=== PATIENT | male | born 1980 | race Caucasian/White ===

== ENCOUNTER 2024-09-20 11:22 | Emergency (ER) | payer OTHER ==
[~2024-09-20] VITALS: Ht 188 cm; Wt 83.9 kg
[2024-09-20] MEDS ORDERED: Robaxin750 MG PO (15:04)
== END 2024-09-20 15:20 | disposition home or self-care (01) ==
LOC: ER 11:22
DX: M54.2 Cervicalgia (principal); M54.50 Low back pain, unspecified; M25.551 Pain in right hip; V89.2XXA Person injured in unspecified motor-vehicle accident, traffic, initial encounter
CPT/HCPCS: 99283

== ENCOUNTER 2025-03-22 03:14 | Emergency (ER) | payer OTHER ==
[~2025-03-22] VITALS: Ht 185.4 cm; Wt 83.9 kg
[~2025-03-22 03:14] MED LIST: Robaxin750 MG PO
== END 2025-03-22 05:37 | disposition home or self-care (01) ==
LOC: ER 03:14
DX: S16.1XXA Strain of muscle, fascia and tendon at neck level, initial encounter (principal); X58.XXXA Exposure to other specified factors, initial encounter; Z79.899 Other long term (current) drug therapy
CPT/HCPCS: 99283